=== PATIENT | male | born 1935 | race Caucasian/White ===

== ENCOUNTER 2017-12-19 15:02 | Inpatient (IN) | payer OTHER ==
[~2017-12-19] VITALS: Ht 177.8 cm; Wt 83.0 kg
--- NOTE | ~2017-12-19 | HC ---
[facility] [place] [address] CONSULTATION Name: VANNA ANDREWS Room #: 463-P [facility] IN ..#: [id number] Admission: 12/19/17 Attend Phys: Tej Pathak MD Discharge: 12/27/17 Date of : 35 Report #: [id number] THIS REPORT FOR: //name// CC: Tej Pathak [facility] physician/PCP DATE OF SERVICE: 12/22/2017 HISTORY OF PRESENT ILLNESS: The patient is an 82-year-old white male with history of coronary artery disease, hypertension, diabetes mellitus, atrial fibrillation, on anticoagulation, who had a fall, sustained a right femoral neck fracture. He was admitted to [facility]. He has been followed closely by Cardiology as they held his anticoagulation. He has had a prior history of a DVT and prior pulmonary embolism back in 2014. He was medically cleared and underwent a right hip hemiarthroplasty on 12/20/2017. He is allowed weightbearing as tolerated. 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 Nephrology is seeing him as well with acute renal insufficiency superimposed on chronic kidney disease and hyperkalemia. We are seeing him in rehabilitation medicine consultation. PAST MEDICAL HISTORY: Coronary artery disease with prior coronary artery bypass grafting, acute renal insufficiency superimposed on chronic kidney disease, pulmonary hypertension, permanent atrial fibrillation, chronic kidney disease stage 3-4. He has had an atrial ablation 09/2007, left fem-pop DVT on 05/2015, V/Q intermediate probability 05/2015, and history of a 70% internal carotid lesion. PAST SURGICAL HISTORY: Includes the CABG. He has had cholecystectomy, right renal artery stent. MEDICATIONS: Please see the full medication listing. HABITS: No history of tobacco or alcohol abuse. SOCIAL HISTORY: Lives in a house, one step in, was independent without gait aids. He notes he is moving from [place], [place] to [place], [place], which is near [place]. Lives there with his . He does have involved family and notes there will be someone to assist him. REVIEW OF SYSTEMS: No current complaints of chest pain, shortness of breath or abdominal discomfort. He had significant nausea with emesis yesterday, but feels improved in that regard. Some hip discomfort as expected. PHYSICAL EXAMINATION: GENERAL: A pleasant 82-year-old white male, appeared somewhat younger than stated age. [address] [address] CONSULTATION Name: VANNA ANDREWS Room #: 463-P [facility] IN M.R.#: [id number] Admission: 12/19/17 Attend Phys: Tej Pathak MD Discharge: 12/27/17 Date of : 35 Report #: [id number] VITAL SIGNS: Last recorded temperature 97.6, pulse 61, respirations 20, blood pressure is 138/64. NEUROLOGIC: He is alert, pleasant, oriented, appears to be a good historian. Facies are symmetric. He is on room air. Follows basic commands. Functional range of motion of both upper extremities. Strength is grade 4/5. DTRs are trace to 1. EXTREMITIES: Left lower extremity, functional range of motion, strength is grade 4-/5. DTRs are trace to 1. Right hip is dressed. There is no focal calf swelling. He can dorsiflex the right ankle. He is needing assistance with basic functional mobility skills. He has been transferring with max assist, but he notes he did better today in therapy and was able to get up short distance with a walker. ASSESSMENT: An 82-year-old white male with the following problem list: 1. Right femoral neck fracture, status post right hip hemiarthroplasty on 12/20/2017, weightbearing as tolerated. 2. Coronary artery disease with prior coronary artery bypass grafting. 3. Pulmonary hypertension. 4. Acute renal insufficiency superimposed on chronic kidney disease. 5. Hyperkalemia. 6. Nausea and vomiting. This appears, improved, resolved. 7. Permanent atrial fibrillation. 8. Prior history of atrial fibrillation. 9. Prior history of deep vein thrombosis/pulmonary embolism. PLAN: Cardiology is following regarding his cardiac issues and anticoagulation status. He also has Nephrology involved as well as Orthopedics and Internal Medicine. We are assessing his tolerance for rehab therapies. We would anticipate he should be a good acute inpatient rehab candidate as he further medically stabilizes. He is very motivated to return back to the home setting. We will be glad to follow along with you regarding his rehab therapy needs. We will be checking into issues regarding acute rehab transfer. <ELECTRONICALLY SIGNED> By: Napoleon Moya MD 01/05/18 1735 1035 1213 Napoleon Moya MD /nt
--- NOTE | ~2017-12-19 | HC ---
[facility] [place] [address] CONSULTATION Name: VANNA ANDREWS Room #: 463-P [facility] IN .R.#: [id number] Admission: 12/19/17 Attend Phys: Tej Pathak MD Discharge: 12/27/17 Date of : 35 Report #: [id number] THIS REPORT FOR: //name// CC: Tej Pathak [facility] physician/PCP DATE OF SERVICE: 12/25/2017 HISTORY OF PRESENT ILLNESS: This is an 82-year-old male patient who was called to me today for a Neurology consultation. Consultation was written a few days ago, but by oversight, they forgot to call me and it was called to me today. I tried to call the patient's on both the numbers I have, but I was not able to reach her. This patient had an episode of altered mental status with some symptoms on the left side. He does not remember much about it. Reviewing the record, it would indicate that this patient had some tremor, some altered mental status, which was moderately severe and it has become better. He does not appear to be completely normal cognitive status, but I do not know what his baseline is, and I cannot reach the patient's to get further history in that regard. REVIEW OF SYSTEMS: Indicates that this patient has been seen by multiple physicians. He has a history of atrial fibrillation. Looks like some time, he was on the blood thinner and other time, he was not the best I can tell. He had a history of fall. He had hip surgery after that. He has, by record, history of diabetes, hypertension, AFib, cholecystectomy, renal artery stenosis, chronic kidney disease, carotid stenosis, pulmonary hypertension, etc. This was his 14-point review of relevant system I can find from the record. PAST MEDICAL HISTORY: Not available for me from the patient, but looks like he has a kidney problem. I do not know what his baseline mental status is. FAMILY HISTORY: There is no family history of early age stroke, but I cannot confirm that history from anybody. SOCIAL HISTORY: Apparently, he does not smoke or drink any alcohol. PHYSICAL EXAMINATION: Indicates he is alert. He is responsive. After a little thinking, he can tell me it is November. His memory overall looks somewhat diminished. Cranial nerve examination 2-12 looks unremarkable. It is difficult to do neuromuscular examinations on him because of his hip injury, but his position sense is present and he moves both sides. His tone looks unremarkable. His reflexes are diminished. He does not have any [id number]-[id number] abnormality. He could not cooperate with the fundus examination. He is a reasonably built individual who does not have any dysmorphic features of eyes, ears and face. His vision and hearing look adequate. His pulses are somewhat difficult to feel. I do not believe he has much edema, cyanosis or jaundice. He has no [address] [place] [address] CONSULTATION Name: VANNA ANDREWS Room #: 463-P [facility] IN .R.#: [id number] Admission: 12/19/17 Attend Phys: Tej Pathak MD Discharge: 12/27/17 Date of : 35 Report #: [id number] thyroid mass. VITAL SIGNS: His blood pressure is running about 143/59, respirations are 19, pulse is 82, temperature is 98.5. LABORATORY DATA: Indicates that he is anemic at a hemoglobin of 7.7, but he had a surgery and he had a renal problem . His GFR is 32. His MRI was reviewed and his MRI indicates there is no stroke, which can explain the patient's present symptomatology. His liver function is abnormal. IMPRESSION: It would appear that this patient probably had encephalopathy with all the things going on. Worrisome feature in this patient is if he is having transient ischemic attack referable to the right carotid. One of the notes indicates that he has a right carotid stenosis. I need to find out where that carotid Doppler is because I do not find in the patient's report. If the patient does have a carotid stenosis of 70% on the right side and he had symptoms on the left side, that would indicate that the carotid is symptomatic and that may have to be addressed. That is not going to be easy to address at this stage because he has to recuperate from the present surgery before carotid endarterectomy can be done even if he is a candidate. I do not know what the condition of his Eliquis either. He needs to be on that, but it has been held. I will try to call you and find out. He also has a liver function abnormality and that may be contributing to the patient's encephalopathy and you might check ammonia level on this patient. RECOMMENDATIONS: 1. I will get an EEG done. 2. I will try to get the carotid Doppler report. 3. I will discuss the patient with the when I could get hold of the as well as the admitting physician, Dr. Desir. Thank you very much for this referral. <ELECTRONICALLY SIGNED> By: Erasmo Waller MD 12/31/17 1422 1247 1846 Ersamo Waller MD /nt
--- NOTE | ~2017-12-19 | HC ---
[facility] [place] [address] CONSULTATION Name: VANNA ANDREWS Room #: 355-P ADM IN .R.#: [id number] Admission: 12/19/17 Attend Phys: Tej Pathak MD Discharge: Date of : 35 Report #: [id number] THIS REPORT FOR: //name// CC: Tej Pathak [facility] physician/PCP HISTORY OF PRESENT ILLNESS: The patient is an 82-year-old male, well known to myself, who is transferred here from [facility] with a hip fracture. The patient has had some complicated cardiac history, but has been stable now for some time. He is status post bypass surgery in 2007 with permanent AFib. He is anticoagulated with a novel agent Eliquis 2.5 b.i.d. His ejection fraction has been preserved. He has moderately severe MR and TR. Pulmonary pressures have been in the 70 mm, but he is well compensated. He has mild aortic valve stenosis. He walked 4-1/2 minutes on a treadmill stress test a couple of months ago. He has moderate carotid disease, which we have been following, 60-70% on the right, 40% on the left. He has had no bleeding issues. He has chronic underlying kidney disease. He has done well. MEDICATIONS: Atorvastatin 20, Entresto 49/51, Lexapro 10, fish oil, Lasix 40, insulin, Claritin and Eliquis 2.5 b.i.d. ALLERGIES: MORPHINE. PAST MEDICAL HISTORY: CAD, chronic kidney disease, bypass surgery, diabetes, hypertension, pulmonary hypertension, valvular insufficiency, permanent atrial fibrillation, DJD, cholecystectomy. FAMILY HISTORY: Strongly positive, had a brother and father with infarcts prematurely. 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 No current alcohol or tobacco use. No caffeine. He is fairly active and independent. REVIEW OF SYSTEMS: Essentially negative except for stated above and some nocturia, hesitancy. LABORATORY DATA: Sodium 138, potassium 4.9, creatinine 2.1, that is his baseline. Liver function tests were normal. H and H are 11.7 and 34.1, white count 10.5, platelets 173. PHYSICAL EXAMINATION: GENERAL: He is pleasant, alert. He is in some mild discomfort. VITAL SIGNS: Pulse is 60, blood pressure 110/54. HEENT: Eyes reveal xanthelasmas. Pharynx is clear. NECK: Shows preserved upstrokes without JVD or bruits. LUNGS: Clear with slight prolonged expiratory phase. CARDIAC: Irregularly irregular. S1, S2. Holosystolic murmur is noted at the [address] [address] CONSULTATION Name: VANNA ANDREWS Room #: 355-P [facility] IN M.R.#: [id number] Admission: 12/19/17 Attend Phys: Tej Pathak MD Discharge: Date of : 35 Report #: [id number] apex. ABDOMEN: Soft. No HSM or abdominal bruit. EXTREMITIES: There is a rotation of the right lower extremity due to the femoral neck fracture. Otherwise, generalized arthritic changes are noted. NEUROLOGIC: Intact. SKIN: Warm and dry without xanthoma or ulcer. ASSESSMENT: 1. Fall with right femoral neck fracture. 2. Coronary artery disease with coronary artery bypass graft 2007 (preserved left ventricular function). 3. Chronic kidney disease stage 3-4. 4. Diabetes. 5. Hypertension. 6. Moderate carotid disease. 7. Pulmonary hypertension with moderate valvular insufficiency. RECOMMENDATIONS AND PLAN: He has done well on this current medication regimen cardiovascular earl, he has not decompensated from a heart failure perspective. It will be more on the basis of valvular and he has preserved EF. Only mild aortic valve stenosis. He has recently been evaluated and he is stable from a cardiovascular perspective, okay to proceed with hip surgery. We will follow with you. We are holding anticoagulants and would use Lovenox as a bridge until surgery date. He is now 24 hours after his last dose of Eliquis; it would be okay to operate tomorrow or the following day from an anticoagulation perspective. We will follow with you. Thank you for asking me to assist in the care of this patient. By: 0901 1110 Curry Salcido MD, FACC /nt
--- NOTE | ~2017-12-19 | HC ---
[facility] [place] [address] CONSULTATION Name: VANNA ANDREWS Room #: 355-P ADM IN ..#: [id number] Admission: 12/19/17 Attend Phys: Tej Pathak MD Discharge: Date of : 35 Report #: [id number] THIS REPORT FOR: //name// CC: Tej Pathak [facility] physician/PCP DATE OF SERVICE: 12/20/2017 REASON FOR CONSULTATION: Right hip fracture. HISTORY OF PRESENT ILLNESS: The patient is an 82-year-old male who fell from a standing height. He thinks maybe he tripped over his foot. He denied loss of consciousness. He complains of right hip pain. He denies any other injury. He was originally seen at [facility] and then transferred here. REVIEW OF SYSTEMS: NEUROLOGIC: Denies numbness or tingling in the extremities. MUSCULOSKELETAL: See HPI. The patient denies any other extremity injuries except for some abrasions on the anterior aspect of his right knee and right arm. The patient denies any prior history of right hip pain or diagnosis of arthritis. PAST MEDICAL HISTORY: Significant for diabetes, reports last hemoglobin A1c was approximately 6.4; hypertension; atrial fibrillation; coronary artery disease; kidney disease; degenerative joint disease and mild pulmonary hypertension. PAST SURGICAL HISTORY: Coronary artery bypass graft, right renal artery stent and cholecystectomy. SOCIAL HISTORY: He is . He lives at home with his . He denies using any ambulatory aids. He denies alcohol or smoking. MEDICATIONS: On admission include loratadine, Eliquis, atorvastatin, aspirin, Lasix, Lantus, NovoLog and Entresto LABORATORIES STUDIES: Done on 12/19/2017 show white blood cell count of 10.5, hemoglobin 11.7, hematocrit 34.1 and platelet count 173. INR is 1.1. Chemistry is grossly normal except for a creatinine that is elevated at 2.1. Albumin is low at 3.1. Alkaline phosphatase is slightly elevated at 122. PHYSICAL EXAMINATION: GENERAL: The patient is alert and oriented and interacts appropriately. He is a very pleasant, well-developed, well-nourished male with a normal affect. He interacts appropriately. EXTREMITIES: Examination of his bilateral upper extremities, skin is clean and dry. On the right, he has multiple dressings on superficial abrasions evaluated [address] [address] CONSULTATION Name: VANNA ANDREWS Room #: 355-[facility] IN [facility].#: [id number] Admission: 12/19/17 Attend Phys: Tej aPthak MD Discharge: Date of : 35 Report #: [id number] by the Emergency Department physician. He has some diffuse arthritic changes bilaterally in his upper extremities. He is able to move his bilateral shoulders, elbows, forearms, wrists and hands without pain and with functional motion. There is no tenderness to palpation throughout the bilateral sternum and clavicles, bilateral arms, elbows, forearms, wrists and hands. Bilateral lower extremity exam: Sensation is intact to light touch. Skin is clean, dry and intact except for a small abrasion over the anterior aspect of his right knee with no signs of infection. These are neurovascularly intact with brisk capillary refill. Sensation is intact to light touch throughout. EHL, FHL, dorsiflexion and plantar flexion are intact. He has no tenderness to palpation throughout the bilateral distal thighs, knees, legs, ankles or feet. No pain with left hip range of motion. Moderate pain with attempted right hip range of motion. RADIOGRAPHS: AP pelvis and AP and lateral of the right hip show displaced subcapital femoral neck fracture with possible arthritic changes in the hip. IMPRESSION AND PLAN: Right displaced subcapital femoral neck fracture in an 82-year-old male. I discussed the diagnosis as well as treatment options. I have discussed this patient with Dr. Yared Christensen. Plan is for him to undergo medical and cardiac clearance and hopefully we will be able to perform his surgery later today if he is medically optimized in from a medical and cardiac standpoint. The risks, benefits, alternatives and complications were discussed including but not limited to decreased ambulatory level, blood clots, hardware problems including dislocation, infection, damage to vessels or nerves and hardware problems. Informed consent was obtained. Questions were encouraged and answered to the best of my ability. Thank you very much for allowing me to participate in the care of this patient. <ELECTRONICALLY SIGNED> By: Raquel Proctor MD 12/24/17 1656 0905 1127 Raquel Proctor MD /nt
--- NOTE | ~2017-12-19 | EKG ---
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 12/24/17 0735 09 09 Hardeep Lopez MD, [facility] /EPI
--- NOTE | ~2017-12-19 | HC ---
[facility] [place] [address] CONSULTATION Name: VANNA ANDREWS Room #: 355-P [facility] IN .R.#: [id number] Admission: 12/19/17 Attend Phys: Tej Pathak MD Discharge: Date of : 35 Report #: [id number] THIS REPORT FOR: //name// CC: Tej Pathak [facility] physician/PCP DATE OF SERVICE: 12/20/2017 NEPHROLOGY CONSULTATION ATTENDING PHYSICIAN: Dr. Pathak. REASON FOR CONSULTATION: Chronic kidney disease. HISTORY OF PRESENT ILLNESS: The patient is well known to our service and followed by Dr. Arnulfo Montoya for his chronic kidney disease with a baseline creatinine of about 2. He has long-standing diabetes mellitus and hypertension with his chronic kidney disease, but apparently has not had any difficulty with heavy proteinuria as far as I can tell. The patient fell and broke his right hip and he comes up here for definitive treatment. PAST MEDICAL HISTORY: He had coronary bypass surgery in 2007. Previous cataract surgery. He apparently had a renal artery stent placed for unilateral renal artery stenosis at some point in the past as well. Also has chronic atrial fibrillation, on anticoagulation. HOME MEDICATIONS: Include Eliquis, atorvastatin, aspirin, furosemide, insulin and he apparently is also treated with Entresto by Dr. Salcido. FAMILY HISTORY: Positive for blood clots, coronary artery disease, stroke and hypertension. SOCIAL HISTORY: No cigarettes or alcohol. REVIEW OF SYSTEMS: GENERAL: Feeling reasonably well. EYES: He has had no trouble with his vision. He did have a cataract surgery, as mentioned. ENT: Hearing okay, swallows okay. No mouth ulcers. ENDOCRINE: Positive for diabetes. RESPIRATORY: Not short-winded. No pleuritic pain, asthma, cough or hemoptysis. CARDIAC: No chest pain or angina. Does occasionally have lower extremity edema, more on the left leg than the right. GASTROINTESTINAL: No nausea, vomiting, diarrhea or bloody stools. [facility] [address] [place] [address] CONSULTATION Name: VANNA ANDREWS Room #: 355-P [facility] IN [facility].#: [id number] Admission: 12/19/17 Attend Phys: Tej Pathak MD Discharge: Date of : 35 Report #: [id number] GENITOURINARY: No dysuria, hematuria or renal stones. NEUROLOGIC: No seizure, syncope, stroke or evidence of peripheral neuropathy. PSYCHIATRIC: No depression or anxiety. PHYSICAL EXAMINATION: GENERAL: This is a reasonably well-appearing gentleman, in no distress. SKIN: Unremarkable. SKELETAL: Well developed, well nourished. HEENT: Extraocular movements full. No scleral icterus. Hearing and vision intact. Mucous membranes moist. Tongue and buccal mucosa are benign. NECK: Supple. I detect no JVD. CHEST: Clear to auscultation. HEART: Irregular. ABDOMEN: Soft and nontender. No bruits, masses or organomegaly are appreciated. EXTREMITIES: Show 2+ edema in the left ankle, trace to 1+ edema in the right ankle. LABORATORY DATA: Hemoglobin 11.7. Sodium 138, potassium 4.9, chloride 103, bicarbonate 28, BUN 31 and creatinine 2.1. ASSESSMENT AND PLAN: 1. Chronic kidney disease. Creatinine may be just a touch. He will need some IV fluids with his surgery. He appears to have fairly stable chronic kidney disease, electrolytes are fine and volume status is okay at the current time. 2. Pulmonary hypertension. Review of the old records does reveal some evidence of pulmonary hypertension, which may require further treatment. 3. Diabetes mellitus. 4. Hypertension. 5. Chronic atrial fibrillation, on anticoagulation. 6. Right hip fracture, which will need some surgery and appears like he should do okay with that at this time. <ELECTRONICALLY SIGNED> By: Curry Mccallum MD 12/24/17 1122 1051 1312 Curry Mccallum MD /nt
--- NOTE | ~2017-12-19 | O ---
[facility] [place] [address] OPERATIVE REPORT Name: VANNA ANDREWS Room #: 463-P [facility] IN ..#: [id number] Admission: 12/19/17 Attend Phys: Tej Pathak MD Discharge: 12/27/17 Date of : 35 Report #: [id number] THIS REPORT FOR: //name// CC: Tej Pathak [facility] physician/PCP DATE OF SERVICE: 12/20/2017 PREOPERATIVE DIAGNOSIS: Right hip femoral neck fracture. POSTOPERATIVE DIAGNOSIS: Right hip femoral neck fracture. PROCEDURE: Right hip hemiarthroplasty. SURGEON: Yared Christensen M.D. RED MUD THICKENER OPERATOR: Ju Mcneal. ANESTHESIA: General. TOURNIQUET TIME: Zero. ESTIMATED BLOOD LOSS: 200 mL. DRAINS: No drains. COMPLICATIONS: No complications. DESCRIPTION OF PROCEDURE: The patient brought to the operating room where he was placed under general anesthesia. Once under adequate general anesthesia, he was placed into a lateral decubitus position on the operative table. The right hip was then prepped and draped in sterile manner. A 14-cm incision was then made over the tip of the greater trochanter. This dissected down to the tensor fascia, which was incised in line with the incision. Exposure was then made of the posterior aspect of the hip. The piriformis was identified and then elevated off of the joint along with the joint capsule with a Bovie cautery. The entire excellent external rotators were elevated as well. Once the joint was entered, any hematoma was evacuated and the fracture site was identified. The femoral head was extracted utilizing a Valels elevator and sized a 52-mm head. The femoral neck was cut to length and subsequently the femur was reamed to a size 9 femoral stem. Subsequent to this, the trial components were placed. This did appear to be very stable; therefore, the final components were placed which was a size 9 stem with a bipolar head, mm [employer] system head. The wound was then irrigated once again copiously. Piriformis and the short external rotators were then subsequently repaired back to the piriformis fossa and posterior hip. This was done with a #5 FiberWire suture. The [facility] [address] [place] [address] OPERATIVE REPORT Name: VANNA ANDREWS Room #: 463-P [facility] IN [facility].#: [id number] Admission: 12/19/17 Attend Phys: Tej Pathak MD Discharge: 12/27/17 Date of : 35 Report #: [id number] capsular layer was closed with #2 FiberWire suture. The wound was irrigated once again copiously. The tensor fascia was closed with #1 Vicryl, 2-0 Vicryl was used in subcutaneous tissues and velvet were used for the skin. The wounds were dressed with Xeroform, 4 x 4s and a sterile soft compressive dressing was placed. There were no complications during the procedure. The patient tolerated the procedure well and went to the recovery room without incident. <ELECTRONICALLY SIGNED> By: Yared Christensen MD 12/30/17 1204 0938 1005 Yared Christensen MD /nt
--- NOTE | ~2017-12-19 | H ---
[facility] [place] [address] HISTORY AND PHYSICAL Name: VANNA ANDREWS Room #: 463-P ADM IN M.R.#: [id number] Admission: 12/19/17 Attend Phys: Tej Pathak MD Discharge: Date of : 35 Report #: [id number] THIS REPORT FOR: //name// CC: Tej Pathak [facility] physician/PCP REASON FOR PRESENTATION: Transferred from another facility for a fractured femur neck. HISTORY OF PRESENT ILLNESS: This is a very pleasant 82-year-old with past medical history of coronary artery disease, hypertension, and diabetes mellitus. He is known to have AFib and maintained on chronic blood thinner. He is also known to have CABG. He fell this morning and fractured his right femur. He visited with his local facility. He denies any symptoms preceding the fall. Specifically, no neurological symptoms. No cardiac symptoms before his fall. When he visited with the other facility CT, x-ray confirmed the presence of a right femur neck fracture. He was transferred here for further evaluation. He reported occasional mild pain. His was present during his fall. She called 911. She does not recall any inciting events. PAST MEDICAL HISTORY: 1. Diabetes mellitus. 2. Hypertension. 3. AFib. 4. CABG. 5. Post-cholecystectomy. 6. Right renal artery stent. 7. Post-CABG. 8. Chronic kidney disease, follows with Dr. Montoya. 9. 70% right internal carotid lesion stenosis. 10. Degenerative joint disease. 11. Mild pulmonary hypertension. SOCIAL HISTORY: . 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 No drug or alcohol abuse. MEDICATIONS ON PRESENTATION: 1. Loratadine. 2. Eliquis. 3. Atorvastatin. 4. Aspirin. 5. Lasix. 6. Lantus. 7. NovoLog. 8. Entresto. FAMILY HISTORY: Significant for hypercoagulable conditions, diabetes mellitus [facility] [address] [place] [address] HISTORY AND PHYSICAL Name: VANNA ANDREWS Room #: 463-P [facility] IN [facility]#: [id number] Admission: 12/19/17 Attend Phys: Tej Pathak MD Discharge: Date of : 35 Report #: [id number] and hypertension. REVIEW OF SYSTEMS: GENERAL: No fever or chills. CARDIOVASCULAR: No chest pain or palpitation. PULMONARY: No cough or hemoptysis. GASTROINTESTINAL: No nausea or vomiting. GENITOURINARY: No frequency or urgency. MUSCULOSKELETAL: As per the history of present illness. LABORATORY DATA: None available today; however, I reviewed his outpatient laboratory values, creatinine is stable at 1.6. X-rays reviewed. PHYSICAL EXAMINATION: VITAL SIGNS: Temperature 36.5, blood pressure 160/79, pulse rate 92. Bedside pulse ox is 97. HEAD AND NECK: No jugular venous distention, no bruit, no thyromegaly. CHEST: Clear to auscultation bilaterally. CARDIOVASCULAR: Regular with no rub. Bradycardic. ABDOMEN: Soft, nontender with no hepatosplenomegaly. LOWER EXTREMITIES: Tender right femur. There is an abrasion on the right elbow, abrasion on the right knee. ASSESSMENT, IMPRESSION, PLAN: 1. Status post fall with right femur neck fracture. 2. Atrial fibrillation. 3. Coronary artery disease. 4. Chronic kidney disease. 5. Diabetes mellitus. 6. Hypertension. 7. Carotid artery stenosis. 8. Admission. 9. Orthopedic consult. 10. Cardiac clearance. 11. Medically cleared, awaiting for the cardiac clearance. 12. Obtain stat labs. 13. Resume his blood pressure medications. 14. Diabetic diet. 15. Deep venous thrombosis and gastrointestinal prophylaxis. 16. Holding Eliquis. 17. Holding his long-acting insulin, anticipating that he will go to the surgery soon. [place] [id number] HISTORY AND PHYSICAL Name: JULIANAVANNA Erna Room #: 463-P [facility] IN ..#: [id number] Admission: 12/19/17 Attend Phys: Tej Pathak MD Discharge: Date of : 35 Report #: [id number] 18. Medically cleared from the kidney perspective also to proceed with the planned procedure after cardiac clearance. <ELECTRONICALLY SIGNED> By: Ant Pollock MD 12/27/17 0945 1624 1648 Ant Pollock MD /nt
--- NOTE | ~2017-12-19 | EKG ---
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: [employer] : 1935 Requested By: Rusty Alvarez Order Number: [id number] MD: Hardeep Lopez Measurements Intervals Arnold Rate: 87 P: NH: QRS: -1 QRSD: 101 T: QT: 405 QTc: 488 Interpretive Statements Atrial fibrillation Ventricular bigeminy Low voltage, extremity leads Probable anteroseptal infarct, old Borderline repolarization abnormality Compared to ECG 08/31/2015 07:09:24 Ventricular premature complex(es) now present Electronically Signed On 12-21-2017 8:35:40 CDT by Hardeep Lopez [email or web address] <ELECTRONICALLY SIGNED> By: Hardeep Lopez MD, [facility] 12/21/17 0835 1143 1143 Hardeep Lopez MD, [facility] /EPI
[~2017-12-19 15:02] MED LIST: AMOXICILLIN 50500 MG PO; ASPIRIN EC81 M1 PO; BENICAR20 MG PO; CARDURA XL4 MG PO; CLARITIN10 M2 PO; COLACE100 MG PO; COUMADIN 1MG TAB1 M1 PO; DEMADEX20 MG PO; ENOXAPARIN60 MG/0.1 SUBQ; FISH OIL 1,0001 EAC5 PO; HYDROCODON-ACE1 EACH PO; HYDROCODONE-AP1 EAC6 PO; JANTOVEN5 MG PO; LANTUS SC; LASIX 40 MG TAB40 M1 PO; LEXAPRO 10 MG T10 MG PO; LIDODERM 5%1 PATC1 TRANSDERM; LIPITOR 20 MG T20 M1 PO; LISINOPRIL10 MG PO; MULTIVITAMINS PO; NOVOLOG100 UNIT/1 SUBQ; POTASSIUM CHLO10 ME1 PO; SIMVASTATIN40 MG PO; TOPROL XL50 MG PO; VITAMIN D400 UNI1 PO; ZOCOR 20 MG TAB20 M1 PO
[2017-12-19 16:03] VITALS: BP 160/79
[2017-12-19] MEDS ORDERED: LEXAPRO 10 MG T10 M2 PO (16:05)
[2017-12-19] MEDS ORDERED: ELIQUIS2.5 MG PO (16:05)
[2017-12-19] MEDS ORDERED: ENTRESTO 49 MG1 EACH PO (16:05)
[2017-12-19 16:54] LABS: HEMATOCRIT 34.1 % (42.0-52.0); HEMOGLOBIN 11.7 gm/dL (14.0-18.0); MCH 33.2 pg (26.0-34.0); MCHC 34.2 g/dL (28.0-37.0); RBC 3.51 mil/uL (4.50-6.00); RDW 14.7 % (10.5-14.5); WBC 10.5 thou/uL (4.0-11.0)
[2017-12-19 17:05] LABS: ALBUMIN 3.7 g/dL (3.4-5.0); CALCIUM 9.2 mg/dL (8.5-10.1); CREATININE 1.7 mg/dL (0.7-1.3); POTASSIUM 5.2 mmol/L (3.5-5.1); TOTAL BILIRUBIN 0.9 mg/dL (<0.1-1.0); TOTAL PROTEIN 7.1 g/dL (6.4-8.2)
[2017-12-19 19:30] VITALS: BP 111/54
[2017-12-20] VITALS (14 sets, daily range): BP systolic 107–175; BP diastolic 46–70
[2017-12-20 06:08] LABS: INR 1.1; PROTIME 11.2 Seconds (9.3-11.4)
[2017-12-20 06:14] LABS: ALBUMIN 3.1 g/dL (3.4-5.0); CALCIUM 8.7 mg/dL (8.5-10.1); CREATININE 2.1 mg/dL (0.7-1.3); POTASSIUM 4.9 mmol/L (3.5-5.1); TOTAL BILIRUBIN 0.9 mg/dL (<0.1-1.0); TOTAL PROTEIN 6.6 g/dL (6.4-8.2)
[2017-12-21] VITALS: BP 115/64
[2017-12-21 04:00] VITALS: BP 128/52
[2017-12-21 08:07] VITALS: BP 115/53
[2017-12-21 11:09] LABS: HEMATOCRIT 26.9 % (42.0-52.0)
[2017-12-21 11:27] LABS: HEMOGLOBIN 9.1 gm/dL (14.0-18.0)
[2017-12-21 11:36] LABS: CALCIUM 8.6 mg/dL (8.5-10.1); CREATININE 2.9 mg/dL (0.7-1.3); POTASSIUM 5.8 mmol/L (3.5-5.1); TOTAL BILIRUBIN 0.9 mg/dL (<0.1-1.0); TOTAL PROTEIN 6.1 g/dL (6.4-8.2)
[2017-12-21 11:44] VITALS: BP 107/52
[2017-12-21 15:55] LABS: URINE BILIRUBIN NEGATIVE (Negative); URINE BLOOD TRACE (Negative); URINE CLARITY CLEAR; URINE COLOR YELLOW; URINE GLUCOSE-RANDOM* NEGATIVE (Negative); URINE KETONES NEGATIVE (Negative); URINE LEUKOCYTES NEGATIVE (Negative); URINE NITRITE NEGATIVE (Negative); URINE PROTEIN (DIPSTICK) TRACE (Negative); URINE SPECIFIC GRAVITY 1.025 (1.005-1.035); URINE UROBILINOGEN 0.2 E.U./dl (0.2-1.0)
[2017-12-21 19:40] VITALS: BP 144/64
[2017-12-22] VITALS (11 sets, daily range): BP systolic 82–138; BP diastolic 48–64
[2017-12-22 05:18] LABS: HEMATOCRIT 25.7 % (42.0-52.0); HEMOGLOBIN 8.6 gm/dL (14.0-18.0); MCH 33.1 pg (26.0-34.0); MCHC 33.6 g/dL (28.0-37.0); MCV 98.7 fL (80.0-100.0); RBC 2.61 mil/uL (4.50-6.00); RDW 14.6 % (10.5-14.5); WBC 9.7 thou/uL (4.0-11.0)
[2017-12-22 05:31] LABS: ALBUMIN 2.9 g/dL (3.4-5.0); CALCIUM 8.6 mg/dL (8.5-10.1); PHOSPHORUS 4.8 mg/dL (2.5-4.9); POTASSIUM 5.7 mmol/L (3.5-5.1)
[2017-12-23] VITALS (7 sets, daily range): BP systolic 106–144; BP diastolic 57–84
[2017-12-23 06:05] LABS: HEMATOCRIT 24.9 % (42.0-52.0); HEMOGLOBIN 8.6 gm/dL (14.0-18.0); MCH 33.8 pg (26.0-34.0); MCHC 34.4 g/dL (28.0-37.0); MCV 98.3 fL (80.0-100.0); RBC 2.53 mil/uL (4.50-6.00); RDW 14.1 % (10.5-14.5); WBC 7.9 thou/uL (4.0-11.0)
[2017-12-23 06:19] LABS: ALBUMIN 2.7 g/dL (3.4-5.0); CALCIUM 8.3 mg/dL (8.5-10.1); CREATININE 3.2 mg/dL (0.7-1.3); PHOSPHORUS 4.6 mg/dL (2.5-4.9); POTASSIUM 5.2 mmol/L (3.5-5.1)
[2017-12-23 18:42] LABS: HEMATOCRIT 23.9 % (42.0-52.0); HEMOGLOBIN 8.3 gm/dL (14.0-18.0); MCH 33.3 pg (26.0-34.0); MCHC 34.6 g/dL (28.0-37.0); MCV 96.4 fL (80.0-100.0); PLATELET COUNT 141 thou/uL (150-400); RBC 2.48 mil/uL (4.50-6.00); WBC 6.4 thou/uL (4.0-11.0)
[2017-12-23 18:47] LABS: ANION GAP 5 mmol/L (7-16); BUN 61 mg/dL (7-18); CALCIUM 8.8 mg/dL (8.5-10.1); CHLORIDE 99 mmol/L (98-107); CO2 28 mmol/L (21-32); CREATININE 2.8 mg/dL (0.7-1.3); GLUCOSE 174 mg/dL (74-106); POTASSIUM 5.1 mmol/L (3.5-5.1); SODIUM 132 mmol/L (136-145)
[2017-12-23 18:54] LABS: APTT 31.9 Seconds (24.5-32.8); PROTIME 10.7 Seconds (9.3-11.4)
[2017-12-23 18:56] LABS: TROPONIN-I <0.06 ng/mL (<0.06)
[2017-12-23 19:13] LABS: ABSOLUTE NEUTROPHILS 5.1 thou/uL (1.4-8.2)
[2017-12-23 19:14] LABS: ANISOCYTOSIS 1+
[2017-12-24 05:10] VITALS: BP 141/71
[2017-12-24 07:35] VITALS: BP 122/78
[2017-12-24 09:56] LABS: HEMATOCRIT 23.5 % (42.0-52.0); HEMOGLOBIN 8.2 gm/dL (14.0-18.0); MCH 33.6 pg (26.0-34.0); MCHC 35.1 g/dL (28.0-37.0); MCV 95.7 fL (80.0-100.0); RBC 2.45 mil/uL (4.50-6.00); RDW 14.2 % (10.5-14.5); WBC 5.5 thou/uL (4.0-11.0)
[2017-12-24 10:22] LABS: ALBUMIN 2.7 g/dL (3.4-5.0); CALCIUM 8.7 mg/dL (8.5-10.1); CREATININE 2.4 mg/dL (0.7-1.3); MAGNESIUM 1.8 mg/dL (1.8-2.4); POTASSIUM 4.3 mmol/L (3.5-5.1); TOTAL BILIRUBIN 0.8 mg/dL (<0.1-1.0); TOTAL PROTEIN 6.1 g/dL (6.4-8.2)
[2017-12-24 13:40] VITALS: BP 106/49
[2017-12-24 15:41] VITALS: BP 157/94
[2017-12-24 21:44] VITALS: BP 128/61
[2017-12-25 04:22] VITALS: BP 129/63
[2017-12-25 06:57] LABS: HEMATOCRIT 21.6 % (42.0-52.0); HEMOGLOBIN 7.7 gm/dL (14.0-18.0); MCH 33.6 pg (26.0-34.0); MCHC 35.5 g/dL (28.0-37.0); MCV 94.7 fL (80.0-100.0); RBC 2.28 mil/uL (4.50-6.00); RDW 14.3 % (10.5-14.5); WBC 5.8 thou/uL (4.0-11.0)
[2017-12-25 07:23] LABS: CALCIUM 8.3 mg/dL (8.5-10.1); MAGNESIUM 1.7 mg/dL (1.8-2.4); POTASSIUM 4.3 mmol/L (3.5-5.1)
[2017-12-25 08:13] VITALS: BP 143/59
[2017-12-25 16:23] VITALS: BP 129/46
[2017-12-25 19:34] VITALS: BP 146/50
[2017-12-26 02:00] VITALS: BP 129/56
[2017-12-26 07:45] LABS: HEMATOCRIT 21.3 % (42.0-52.0); HEMOGLOBIN 7.5 gm/dL (14.0-18.0); MCH 33.8 pg (26.0-34.0); MCHC 35.4 g/dL (28.0-37.0); MCV 95.4 fL (80.0-100.0); RBC 2.23 mil/uL (4.50-6.00); RDW 14.2 % (10.5-14.5); WBC 6.7 thou/uL (4.0-11.0)
[2017-12-26 08:00] VITALS: BP 126/65
[2017-12-26 08:01] LABS: CALCIUM 8.4 mg/dL (8.5-10.1); CREATININE 1.7 mg/dL (0.7-1.3); MAGNESIUM 1.7 mg/dL (1.8-2.4); POTASSIUM 4.2 mmol/L (3.5-5.1)
[2017-12-26 08:02] LABS: ALBUMIN 2.3 g/dL (3.4-5.0); CALCIUM 8.2 mg/dL (8.5-10.1); CREATININE 1.8 mg/dL (0.7-1.3); PHOSPHORUS 2.9 mg/dL (2.5-4.9); POTASSIUM 4.3 mmol/L (3.5-5.1)
[2017-12-26 16:00] VITALS: BP 134/50
[2017-12-26 19:28] VITALS: BP 137/57
[2017-12-27 00:12] VITALS: BP 140/51
[2017-12-27 03:38] VITALS: BP 126/49
[2017-12-27 06:05] LABS: HEMATOCRIT 21.5 % (42.0-52.0); HEMOGLOBIN 7.7 gm/dL (14.0-18.0); MCH 34.1 pg (26.0-34.0); MCHC 35.8 g/dL (28.0-37.0); MCV 95.4 fL (80.0-100.0); RBC 2.26 mil/uL (4.50-6.00); RDW 14.3 % (10.5-14.5); WBC 8.7 thou/uL (4.0-11.0)
[2017-12-27 06:18] LABS: ALBUMIN 2.3 g/dL (3.4-5.0); CALCIUM 8.5 mg/dL (8.5-10.1); CREATININE 1.8 mg/dL (0.7-1.3); PHOSPHORUS 3.3 mg/dL (2.5-4.9); POTASSIUM 4.6 mmol/L (3.5-5.1)
[2017-12-27 09:24] VITALS: BP 139/57
[2017-12-27] MEDS ORDERED: TYLENOL325 MG PO (17:16)
[2017-12-27] MEDS ORDERED: NOVOLOG100 UNIT/1 SUBQ (17:16)
[2017-12-27] MEDS ORDERED: LACTULOSE20 GM/30 M PO (17:16)
[2017-12-27] MEDS ORDERED: HOME MEDICATION PO ×2 (17:16→17:25)
[2017-12-27] MEDS ORDERED: FLOMAX0.4 MG PO (17:16)
[2017-12-27] MEDS ORDERED: HYDROCODONE-AP1 EAC6 PO (17:25)
[2017-12-27 19:11] LABS: % SATURATION 7 % (20-39); IRON 17 ug/dL (65-175); TIBC 246 ug/dL (250-450)
[2017-12-27 19:38] LABS: FERRITIN 189 ng/mL (26-388)
== END 2017-12-27 17:58 | DRG 469 ==
LOC: 3W 15:02 → 4W 15:40 → 3W 15:40 → 4W 15:40 → 3W 12-23 19:25 → 4W 12-26 02:10
PROVIDERS: Hospitalist; Internal Medicine; Internal Medicine Nephrology; Nurse Practitioner; Nurse Practitioner Adult Health
PROC: 0SRR0JZ Replacement of Right Hip Joint, Femoral Surface with Synthetic Substitute, Open Approach (ICD-10-PCS; principal; 2017-12-20)
DX: S72.001A Fracture of unspecified part of neck of right femur, initial encounter for closed fracture (principal); G93.40 Encephalopathy, unspecified; N17.0 Acute kidney failure with tubular necrosis; N18.4 Chronic kidney disease, stage 4 (severe); I38 Endocarditis, valve unspecified; E11.22 Type 2 diabetes mellitus with diabetic chronic kidney disease; I27.20 Pulmonary hypertension, unspecified; I48.2 Chronic atrial fibrillation; M19.90 Unspecified osteoarthritis, unspecified site; I25.10 Atherosclerotic heart disease of native coronary artery without angina pectoris; E87.5 Hyperkalemia; I65.21 Occlusion and stenosis of right carotid artery; E78.00 Pure hypercholesterolemia, unspecified; I35.0 Nonrheumatic aortic (valve) stenosis; I12.9 Hypertensive chronic kidney disease with stage 1 through stage 4 chronic kidney disease, or unspecified chronic kidney disease; R33.9 Retention of urine, unspecified; D64.9 Anemia, unspecified; R25.1 Tremor, unspecified; K59.00 Constipation, unspecified; M10.9 Gout, unspecified; Z88.6 Allergy status to analgesic agent; Z95.1 Presence of aortocoronary bypass graft; Z90.49 Acquired absence of other specified parts of digestive tract; Z98.49 Cataract extraction status, unspecified eye; Z79.01 Long term (current) use of anticoagulants; Z82.49 Family history of ischemic heart disease and other diseases of the circulatory system; Z82.3 Family history of stroke; Z83.3 Family history of diabetes mellitus; Z79.82 Long term (current) use of aspirin; Z79.899 Other long term (current) drug therapy; Z86.718 Personal history of other venous thrombosis and embolism; Z86.711 Personal history of pulmonary embolism; W01.0XXA Fall on same level from slipping, tripping and stumbling without subsequent striking against object, initial encounter; Y93.89 Activity, other specified; Y92.89 Other specified places as the place of occurrence of the external cause; Y99.8 Other external cause status
CPT/HCPCS: 10045; 10779; 10879; 50010; 50101; 50382; 50414; 50939; 51412; 53000; 56525; 56530; 56531; 57117; 62110; 62900; 70005

== ENCOUNTER 2017-12-27 16:01 | Inpatient (IN) | payer OTHER ==
[~2017-12-27] VITALS: Ht 177.8 cm; Wt 87.5 kg
--- NOTE | ~2017-12-27 | PLAN ---
[facility] [place] [address] REHAB UNIT PLAN OF CARE Name: VANNA ANDREWS Room #: 505-P [facility] IN M.R.#: [id number] Admission: 12/27/17 Attend Phys: Napoleon Moya MD Discharge: 01/05/18 Date of : 35 Report #: [id number] THIS REPORT FOR: //name// CC: Napoleon Moya [facility] physician/PCP DATE OF SERVICE: 12/29/2017 PROGRESS NOTE/OVERALL PLAN OF CARE SUBJECTIVE: The patient was seen back today in followup. Last recorded temperature is 97.7, pulse is 66, respirations 20, and blood pressure is 130/53. He is in no distress. Transfers have been mod assist. He has been up ambulating 20 feet min assist with a front-wheeled walker. In occupational therapy, lower body dressing is currently max assist. Upper body dressing is more of a setup level. Speech therapy orders have been added. ASSESSMENT: 1. Right femoral neck fracture, status post right hip hemiarthroplasty on 12/20/2017, weightbearing as tolerated. 2. Encephalopathy. 3. Transient ischemic attack with left-sided weakness. 4. Coronary artery disease with prior coronary artery bypass grafting. 5. Pulmonary hypertension. 6. Acute renal insufficiency superimposed on chronic kidney disease. 7. Permanent atrial fibrillation. 8. Prior history of deep venous thrombosis with pulmonary embolism. PLAN: The overall plan of care is based on the preadmission screen, post-admission physician evaluation, and information garnered from therapy assessments. 1. Estimated length of stay is probably going to be at least 10 days to 2 weeks. 2. Medical prognosis is reasonably good. 3. Anticipated interventions includes the interdisciplinary acute inpatient rehabilitation program with PT, OT, speech therapy, rehab nursing assisting regarding medication management, skin care prophylaxis, bowel and bladder issues, and nursing education. Case management is involved as well as the inside solar sales consultant physicians. 4. Anticipated functional outcomes would be for him to become modified independent ideally at the walker level, so that he can get him back to the home setting. 5. Discharge destination would be back to the home setting where he lives in a house. 6. Expected therapy by discipline includes PT and OT and speech 1 hour per day [address] [address] REHAB UNIT PLAN OF CARE Name: JULIANAVANNA Erna Room #: 505-P [facility] IN [facility]#: [id number] Admission: 12/27/17 Attend Phys: Napoleon Moya MD Discharge: 01/05/18 Date of : 35 Report #: [id number] each five days a week throughout the duration of the acute inpatient rehabilitation stay. <ELECTRONICALLY SIGNED> By: Napoleon Moya MD 01/05/18 1735 0 7 Napoleon Moya MD /PMT
--- NOTE | ~2017-12-27 | HC ---
[facility] [place] [address] CONSULTATION Name: VANNA ANDREWS Room #: 505-P [facility] IN M.R.#: [id number] Admission: 12/27/17 Attend Phys: Napoleon Moya MD Discharge: Date of : 35 Report #: [id number] THIS REPORT FOR: //name// CC: Napoleon Moya [facility] physician/PCP DATE OF SERVICE: 01/01/2018 NEUROBEHAVIORAL STATUS EXAMINATION AGE: 82. ATTENDING PHYSICIAN: Napoleon Moya MD. SOFTWARE INTERN: Antonio Silva, PhD. CLINICAL PRESENTATION: The patient is an 82-year-old male admitted to the rehab unit at [facility] for a comprehensive inpatient rehabilitation program to improve functional mobility, activities of daily living and self-care secondary to deficits from a right femoral neck fracture. He is status post right hip hemiarthroplasty and is weightbearing as tolerated. The patient also came in with the diagnosis of encephalopathy, TIA with left-sided weakness, coronary artery disease with prior coronary artery bypass grafting, pulmonary hypertension, acute renal insufficiency superimposed on chronic kidney disease, permanent atrial fibrillation and a prior history of deep venous thrombosis. A complete description of his medical condition and history along with medications can be found in his medical record. Neuropsychological consultation was requested to provide assistance in the assessment of cognitive and emotional status and to provide recommendations and services. Prior to this most recent medical event, he was living independently with his in their home. The patient has 3 children. 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 He has a master's degree from [employer]. The patient was planning to move to a small town outside of [place] to assist the family member in a business. TECHNIQUES UTILIZED: Clinical interview, review of medical records, staff consultation and behavioral observation, mini mental status exam 2 standard version and clock drawing. EXAMINATION FINDINGS: The patient was alert and cooperative with the assessment. He accurately described events surrounding his admission. He remembers having tripped and fallen sustaining his fracture. The patient does not report symptoms of difficulty with appetite or energy level. He does not report depression. A mild degree of anxiety is suggested during physical [address] [address] CONSULTATION Name: VANNA ANDREWS Room #: 505-P [facility] IN ..#: [id number] Admission: 12/27/17 Attend Phys: Napoleon Moya MD Discharge: Date of : 35 Report #: [id number] therapy when having to coordinate his gait. Sleep, appetite and energy level are all within normal limits; however, sleep has been inconsistent. His performance on the MMSE 2 brief version was in the severe range of impairment with a raw score of 10/16. He was 3/3 for initial registration, 5/5 for orientation to time, 2/[address], and 0/3 for immediate recall of 3 items after a brief time delay and distraction. His performance improved on the MMSE 2 standard version to a raw score 24/30, which is a T score of 36 and percentile rank of 8. He was 5/5 for serial 7s, 2/2 for naming, 1/1 for repetition, 3/3 for comprehension. He could read and follow a single command, write a sentence and copy a simple geometric design. Performance on clock drawing indicates perseveration on number. While the hands were generally placed in the correct location, he had perseverated a number on the clock and therefore shows impairment, possibly in executive functioning. DIAGNOSTIC IMPRESSION: 1. Mild neurocognitive disorder, unspecified, without behavior disorder. 2. Unspecified anxiety disorder. RECOMMENDATIONS: The patient will likely benefit from continued reassurance in regard to his recovery. The use of compensatory strategies for area of decreased memory is likely to be necessary. He is showing an improvement in general orientation. Difficulty with immediate memory and executive functioning are suggested. Consider compensatory strategies and a followup evaluation that is more thorough to clarify the severity of cognitive deficits. Distraction will likely be of benefit to manage anxiety when engaged in therapeutic walking. Thank you very much for allowing me to provide the consultation for this patient. By: 1453 Antonio Silva, PhD /nt
--- NOTE | ~2017-12-27 | H ---
[facility] [place] [address] HISTORY AND PHYSICAL Name: VANNA ANDREWS Room #: 505-P [facility] IN .R.#: [id number] Admission: 12/27/17 Attend Phys: Napoleon Moya MD Discharge: 01/05/18 Date of : 35 Report #: [id number] THIS REPORT FOR: //name// CC: Napoleon Moya [facility] physician/PCP DATE OF SERVICE: 12/28/2017 HISTORY AND PHYSICAL/POSTADMISSION PHYSICIAN EVALUATION HISTORY OF PRESENT ILLNESS: The patient is an 82-year-old white male with a history of coronary artery disease, hypertension, diabetes mellitus, atrial fibrillation, on anticoagulation and had a fall, sustained a right femoral neck fracture. He was admitted to [facility] on 12/19/2017. He was followed closely by Cardiology and they held his anticoagulation. He has had a prior history of a DVT and a prior pulmonary embolism back in 2014. He was medically cleared and underwent a right hip hemiarthroplasty on 12/20/2017. He is allowed weightbearing as tolerated. Postoperatively, his course was complicated by an encephalopathy as diagnosed per Neurology and he also had left-sided weakness involving the left lower extremity more than the left upper extremity was seen by Neurology. He was thought to have had a TIA. MRI of the brain did not reveal evidence of any recent infarct or acute intracranial abnormality. Upon further review, weakness actually did involve the left upper extremity as well as the left lower extremity, but it did improve. The patient has had a significant functional decline from his premorbid status and has now been admitted for acute in-hospital inpatient rehabilitation. PAST MEDICAL HISTORY: Includes coronary artery disease with prior coronary artery bypass grafting, acute renal insufficiency superimposed on chronic kidney disease, pulmonary hypertension, permanent atrial fibrillation, chronic kidney disease stage 3-4. He had an atrial ablation in 09/2007, left fem-pop DVT in 05/2015. V/Q intermediate probability in 05/2015. History of 70% internal carotid lesion. PAST SURGICAL HISTORY: Includes the CABG. He has had a cholecystectomy, right renal artery stent. MEDICATIONS: Please see the full medication listing. Medications also vitamins, herbals, and supplements. HABITS: No history of tobacco or alcohol abuse. SOCIAL HISTORY: Lives in a house, one step in, was premorbidly independent without gait aids. He had indicated he was moving from [place], [place] to [facility] near [place]. Lives there with his . He has involved family. [facility] [address] [place] [address] HISTORY AND PHYSICAL Name: VANNA ANDREWS Room #: 505-P [facility] IN [facility].#: [id number] Admission: 12/27/17 Attend Phys: Napoleon Moya MD Discharge: 01/05/18 Date of : 35 Report #: [id number] REVIEW OF SYSTEMS: No complaints. Currently of chest pain, shortness of breath, abdominal discomfort. He thinks the movement of the left side better. He had some prior nausea, which appears improved. He does have some hip discomfort as expected. PHYSICAL EXAMINATION: GENERAL: This is an 82-year-old white male in no obvious distress. NEUROLOGIC: There is some latency to his responses. He can follow basic 1 step commands. VITAL SIGNS: Include temperature 98.3, pulse 61, respirations 16 and blood pressure 159/68. HEENT: Facies appeared symmetric. CHEST: Sounded clear to auscultation. CARDIOVASCULAR: Irregularly irregular. ABDOMEN: Bowel sounds positive, nontender. GENITOURINARY AND RECTAL: Deferred. Facies appeared symmetric. EXTREMITIES: Functional range of motion of the upper extremities, would grade his strength at 4-/5. Left lower extremity strength is probably a grade 4-/5, right lower extremity is a grade 4-. Right hip is dressed. He can dorsiflex that right ankle. He is needing assistance with basic functional mobility skills. Transfers have been max assist. He has been dependent for lower body dressing. ASSESSMENT: This is an 82-year-old white male admitted with the following problem list: 1. Right femoral neck fracture, status post right hip hemiarthroplasty on 12/20/2017, weightbearing as tolerated. 2. Encephalopathy. 3. Transient ischemic attack with left-sided weakness. 4. Coronary artery disease with prior coronary artery bypass grafting. 5. Pulmonary hypertension. 6. Acute renal insufficiency superimposed on chronic kidney disease. 7. Permanent atrial fibrillation. 8. Prior history of deep venous thrombosis with pulmonary embolism. PLAN: The patient is admitted for acute in-hospital inpatient rehabilitation. From a postadmission physician evaluation perspective, there are no relevant changes since the preadmission screening. Please see the above review of prior and current medical and functional conditions and comorbidities. Please see the prior and current functional status. As far as risk of complications, the patient has multiple medical comorbidities as noted above. Initial plan of care involves the interdisciplinary acute inpatient rehabilitation program with the goal of maximizing his functional independence, so he can hopefully return back to his prior living situation. Measurable functional goals would be for the patient to become modified independent with transfers, mobility, ADLs, so he can [address] [address] HISTORY AND PHYSICAL Name: VANNA ANDREWS Room #: 505-P [facility] IN ..#: [id number] Admission: 12/27/17 Attend Phys: Napoleon Moya MD Discharge: 01/05/18 Date of : 35 Report #: [id number] hopefully return back to his prior living situation. Prognosis is reasonably good with estimated length of stay probably at least 10 days to 2 weeks pending progress. Potential barriers would include his multiple medical comorbidities and decreased functional status. The patient meets diagnostic criteria for an acute in-hospital inpatient rehabilitation stay. He meets medical necessity criteria and we will have the oracle fusion consultant physicians continue to follow. He does have the tolerance for therapies and has appropriate discharge goals back to the home setting. <ELECTRONICALLY SIGNED> By: Napoleon Moya MD 01/05/18 1735 0937 1002 Napoleon Moya MD /nt
[~2017-12-27 16:01] MED LIST changes: +ELIQUIS2.5 MG PO; +ENTRESTO 49 MG1 EACH PO; +LEXAPRO 10 MG T10 M2 PO
[2017-12-27] MEDS ORDERED: NOVOLOG100 UNIT/1 SUBQ (17:16)
[2017-12-27] MEDS ORDERED: LACTULOSE20 GM/30 M PO (17:16)
[2017-12-27] MEDS ORDERED: TYLENOL325 MG PO (17:16)
[2017-12-27] MEDS ORDERED: FLOMAX0.4 MG PO (17:16)
[2017-12-27] MEDS ORDERED: HOME MEDICATION PO ×2 (17:16→17:25)
[2017-12-27] MEDS ORDERED: HYDROCODONE-AP1 EAC6 PO (17:25)
[2017-12-27 18:00] VITALS: BP 156/55
[2017-12-27 20:13] VITALS: BP 159/68
[2017-12-28 05:51] LABS: HEMATOCRIT 22.3 % (42.0-52.0); HEMOGLOBIN 8.1 gm/dL (14.0-18.0); MCH 34.5 pg (26.0-34.0); MCHC 36.4 g/dL (28.0-37.0); RBC 2.34 mil/uL (4.50-6.00); RDW 14.2 % (10.5-14.5); WBC 8.7 thou/uL (4.0-11.0)
[2017-12-28 06:09] LABS: CALCIUM 8.6 mg/dL (8.5-10.1); CREATININE 1.8 mg/dL (0.7-1.3); MAGNESIUM 1.9 mg/dL (1.8-2.4); POTASSIUM 4.7 mmol/L (3.5-5.1)
[2017-12-28 07:30] VITALS: BP 143/67
[2017-12-28 19:18] VITALS: BP 130/53
[2017-12-29 08:00] VITALS: BP 99/39
[2017-12-29 11:00] VITALS: BP 107/57
[2017-12-29 12:42] VITALS: BP 125/54
[2017-12-29 20:00] VITALS: BP 134/58
[2017-12-30 06:01] LABS: BASOPHILS 0.5 % (0.0-2.0); EOSINOPHILS 4.1 % (0.0-3.0); HEMATOCRIT 20.5 % (42.0-52.0); HEMOGLOBIN 7.2 gm/dL (14.0-18.0); LYMPHOCYTES 9.4 % (24.0-44.0); MCH 33.7 pg (26.0-34.0); MCV 96.4 fL (80.0-100.0); MONOCYTES 8.8 % (1.0-8.0); PLATELET COUNT 217 thou/uL (150-400); POLYS 77.2 % (36.0-66.0); RBC 2.13 mil/uL (4.50-6.00); WBC 9.1 thou/uL (4.0-11.0)
[2017-12-30 06:17] LABS: ALBUMIN 2.2 g/dL (3.4-5.0); CALCIUM 8.4 mg/dL (8.5-10.1); CREATININE 1.9 mg/dL (0.7-1.3); MAGNESIUM 1.9 mg/dL (1.8-2.4); PHOSPHORUS 4.1 mg/dL (2.5-4.9); URIC ACID* 8.1 mg/dL (2.6-7.2)
[2017-12-30 08:30] VITALS: BP 120/46
[2017-12-30 10:19] LABS: GLYCOHEMOGLOBIN (HGB A1C) 6.7 % (4.8-5.6)
[2017-12-30 20:19] VITALS: BP 135/61
[2017-12-31 07:45] VITALS: BP 140/91
[2017-12-31 10:04] LABS: HEMATOCRIT 22.1 % (42.0-52.0); HEMOGLOBIN 7.6 gm/dL (14.0-18.0); MCH 33.6 pg (26.0-34.0); MCHC 34.4 g/dL (28.0-37.0); MCV 97.7 fL (80.0-100.0); RBC 2.26 mil/uL (4.50-6.00); RDW 14.5 % (10.5-14.5)
[2017-12-31 10:37] LABS: CALCIUM 8.4 mg/dL (8.5-10.1); CREATININE 2.2 mg/dL (0.7-1.3); POTASSIUM 4.8 mmol/L (3.5-5.1)
[2017-12-31 20:02] VITALS: BP 137/62
[2018-01-01 07:25] VITALS: BP 167/72
[2018-01-01 19:45] VITALS: BP 153/69
[2018-01-02 04:01] LABS: ALBUMIN 2.7 g/dL (3.4-5.0); CALCIUM 8.6 mg/dL (8.5-10.1); PHOSPHORUS 3.6 mg/dL (2.5-4.9); POTASSIUM 5.4 mmol/L (3.5-5.1)
[2018-01-02 07:00] VITALS: BP 142/67
[2018-01-02 19:39] VITALS: BP 140/58
[2018-01-03 07:45] VITALS: BP 174/79
[2018-01-03 08:52] LABS: ABSOLUTE NEUTROPHILS 8.3 thou/uL (1.4-8.2); BASOPHILS 0.5 % (0.0-2.0); EOSINOPHILS 2.1 % (0.0-3.0); HEMATOCRIT 23.5 % (42.0-52.0); LYMPHOCYTES 6.1 % (24.0-44.0); MCH 33.8 pg (26.0-34.0); MCHC 34.2 g/dL (28.0-37.0); MONOCYTES 6.8 % (1.0-8.0); PLATELET COUNT 332 thou/uL (150-400); POLYS 84.5 % (36.0-66.0); RBC 2.37 mil/uL (4.50-6.00); RDW 14.5 % (10.5-14.5); WBC 9.8 thou/uL (4.0-11.0)
[2018-01-03 09:15] LABS: CALCIUM 8.9 mg/dL (8.5-10.1); POTASSIUM 4.5 mmol/L (3.5-5.1); TOTAL BILIRUBIN 0.7 mg/dL (<0.1-1.0); TOTAL PROTEIN 6.7 g/dL (6.4-8.2)
[2018-01-03 19:06] VITALS: BP 156/79
[2018-01-04 08:20] VITALS: BP 167/68
[2018-01-04 19:13] VITALS: BP 127/67
[2018-01-05 04:44] LABS: ALBUMIN 2.8 g/dL (3.4-5.0); CALCIUM 8.3 mg/dL (8.5-10.1); PHOSPHORUS 4.2 mg/dL (2.5-4.9); POTASSIUM 4.7 mmol/L (3.5-5.1)
[2018-01-05 08:00] VITALS: BP 166/72
[2018-01-05] MEDS ORDERED: COLACE100 MG PO (09:11)
[2018-01-05] MEDS ORDERED: TYLENOL EXTRA500 MG PO (09:11)
[2018-01-05] MEDS ORDERED: MIRALAX17 GM PO (09:11)
[2018-01-05] MEDS ORDERED: FLOMAX0.4 MG PO (09:11)
[2018-01-05] MEDS ORDERED: NORCO 7.5-3251 EACH PO (09:12)
[2018-01-05] MEDS ORDERED: IRON325 PO (09:13)
[2018-01-05 09:33] VITALS: BP 166/72
[2018-01-05 11:45] VITALS: BP 166/72
== END 2018-01-05 13:01 | disposition home health service (06) | DRG 535 ==
LOC: ENTRNSPT 01-05 12:53 → EDTRNSPTSTS 01-05 12:54
PROVIDERS: Hospitalist; Internal Medicine Cardiovascular Disease; Nurse Practitioner; Nurse Practitioner Family; Physical Medicine & Rehabilitation
DX: S72.001A Fracture of unspecified part of neck of right femur, initial encounter for closed fracture (principal); G93.40 Encephalopathy, unspecified; G45.9 Transient cerebral ischemic attack, unspecified; N17.9 Acute kidney failure, unspecified; N18.4 Chronic kidney disease, stage 4 (severe); D62 Acute posthemorrhagic anemia; I69.854 Hemiplegia and hemiparesis following other cerebrovascular disease affecting left non-dominant side; W18.39XA Other fall on same level, initial encounter; I12.9 Hypertensive chronic kidney disease with stage 1 through stage 4 chronic kidney disease, or unspecified chronic kidney disease; Z96.641 Presence of right artificial hip joint; I25.10 Atherosclerotic heart disease of native coronary artery without angina pectoris; F41.9 Anxiety disorder, unspecified; E11.22 Type 2 diabetes mellitus with diabetic chronic kidney disease; I48.91 Unspecified atrial fibrillation; E87.5 Hyperkalemia; K59.00 Constipation, unspecified; M10.9 Gout, unspecified; G47.00 Insomnia, unspecified; M25.562 Pain in left knee; I27.20 Pulmonary hypertension, unspecified; Z87.81 Personal history of (healed) traumatic fracture; Z91.81 History of falling; Z90.49 Acquired absence of other specified parts of digestive tract; Z95.1 Presence of aortocoronary bypass graft; Y93.89 Activity, other specified; Y92.89 Other specified places as the place of occurrence of the external cause; Y99.8 Other external cause status; Z86.718 Personal history of other venous thrombosis and embolism; Z86.711 Personal history of pulmonary embolism; Z79.01 Long term (current) use of anticoagulants; Z79.899 Other long term (current) drug therapy
CPT/HCPCS: 10112

== ENCOUNTER → 2018-10-25 | Outpatient (CLI) | payer OTHER ==
[~2018-10-25] MED LIST changes: +FLOMAX0.4 MG PO; +HOME MEDICATION PO; +IRON325 PO; +LACTULOSE20 GM/30 M PO; +MIRALAX17 GM PO; +NORCO 7.5-3251 EACH PO; +TYLENOL EXTRA500 MG PO; +TYLENOL325 MG PO
== END ==
LOC: CAT 09:14
DX: T84.84XA Pain due to internal orthopedic prosthetic devices, implants and grafts, initial encounter (principal); Z96.641 Presence of right artificial hip joint; Z79.82 Long term (current) use of aspirin

== ENCOUNTER → 2019-12-21 | Outpatient (CLI) | payer OTHER | LOC: SJCVCIMAG 09-14 13:32 | PROVIDERS: ATTEND Internal Medicine Cardiovascular Disease | DX: I08.8 Other rheumatic multiple valve diseases (principal); R94.31 Abnormal electrocardiogram [ECG] [EKG]; I65.23 Occlusion and stenosis of bilateral carotid arteries; I48.91 Unspecified atrial fibrillation; I25.810 Atherosclerosis of coronary artery bypass graft(s) without angina pectoris; E78.00 Pure hypercholesterolemia, unspecified; D68.59 Other primary thrombophilia; E11.22 Type 2 diabetes mellitus with diabetic chronic kidney disease; I13.10 Hypertensive heart and chronic kidney disease without heart failure, with stage 1 through stage 4 chronic kidney disease, or unspecified chronic kidney disease; N18.9 Chronic kidney disease, unspecified; I27.20 Pulmonary hypertension, unspecified; I25.5 Ischemic cardiomyopathy; Z79.899 Other long term (current) drug therapy; Z87.891 Personal history of nicotine dependence ==

== ENCOUNTER → 2020-04-23 | Outpatient (CLI) | payer OTHER | LOC: SJCVC 10:42 | PROVIDERS: ATTEND Internal Medicine Cardiovascular Disease | DX: R94.31 Abnormal electrocardiogram [ECG] [EKG] (principal); I25.810 Atherosclerosis of coronary artery bypass graft(s) without angina pectoris; E08.21 Diabetes mellitus due to underlying condition with diabetic nephropathy; E11.22 Type 2 diabetes mellitus with diabetic chronic kidney disease; I50.23 Acute on chronic systolic (congestive) heart failure; N18.32 Chronic kidney disease, stage 3b; I65.23 Occlusion and stenosis of bilateral carotid arteries; E78.00 Pure hypercholesterolemia, unspecified; D68.59 Other primary thrombophilia; I48.91 Unspecified atrial fibrillation; I38 Endocarditis, valve unspecified; I25.5 Ischemic cardiomyopathy; Z79.4 Long term (current) use of insulin ==